=== PATIENT | female | born 2000 | race African-American/Black ===

== ENCOUNTER 2025-08-18 22:21 | Emergency (ER) | payer OTHER ==
[~2025-08-18] VITALS: Ht 172.7 cm; Wt 83.6 kg
[2025-08-18 22:40] VITALS: TEMP 36.8; O2SAT 95
[2025-08-19] MEDS ORDERED: ACET-2708 MT (00:02)
[2025-08-19] MEDS ORDERED: AM250 MT (00:02)
[2025-08-19] MEDS: ACETAMINOPHEN 325MG TABLET PO ONE (00:27)
[2025-08-19 00:34] VITALS: BP 111/72; PULSE 91; RESP 18; O2SAT 98
== END 2025-08-19 00:38 | disposition home or self-care (01) ==
LOC: ER 22:21
DX: H66.92 Otitis media, unspecified, left ear (principal)
CPT/HCPCS: 99283